=== PATIENT | female | born 1980 | race Caucasian/White ===

== ENCOUNTER 2025-08-13 08:12 | Outpatient (AMB) | payer BC, SELFPAY ==
--- NOTE | 2025-08-13 08:14 | A.OFFPC_ITS ---
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: No Accompanied by: Self / Same As Patient Allergies morphine Allergy (Intermediate, Verified 08/13/25 08:18) Vomiting Penicillins Allergy (Intermediate, Verified 08/13/25 08:18) Rash Sulfa (Sulfonamide Antibiotics) Allergy (Intermediate, Verified 08/13/25 08:18) Rash Medication List - Last Reconciled 08/13/25 by Munira Melendez MD fluoxetine 10 mg PO DAILY insulin aspart U-100 (Novolog U-100 Insulin aspart) units subcut DAILY magnesium glycinate 240 mg PO DAILY vitamin D3-vitamin K2 125 mcg (5,000 unit)-100 mcg caps PO DAILY Tobacco use date assessed: 08/13/25 Dental Screening Dental Screen Date: 08/13/25 Did you have a dental visit in the last 12 months?: Yes Did you have a dental problem in the last 6 months where you did not have access to dental care?: No Was dental information given to patient?: Patient has dentist HPI HPI Comments History of Present Illness Details The patient is a 45 year old female presenting for an annual physical and reestablish care. Type 1 Diabetes Mellitus: The patient has a history of type 1 diabetes mellitus and is managed by Dr. Houston, an dimensional integration engineer whom she saw in May. Her most recent hemoglobin A1c was 5.8. Perimenopausal Symptoms: The patient reports various perimenopausal symptoms, including intermittent hot flashes, brain fog, and a peculiar itching sensation that has persisted through the summer. The itching occurs at different locations, such as her scalp during the summer and now her palms, primarily when she is going to bed. She denies any rash, twitching, spasms, or cramps associated with the itching. There have been no recent changes in pets, travel, foods, or body products. She has been unable to secure an appointment with a bobbin cleaner for a year and is interested in trying low-dose estradiol and progesterone to manage her symptoms. Sleep Apnea: The patient has a history of sleep apnea, diagnosed a few years ago after she presented with headaches. She uses a nasal mask and is tolerating the treatment well. Overweight: The patient reports ongoing weight gain. An attempt to get Contrave was previously unsuccessful due to insurance issues. She walks two miles daily. Preventative Care: Her last Pap smear was almost two years ago. A colonoscopy was ordered over a year ago, and she has an appointment scheduled for November at [facility]. Up to date with COVID vaccination. [facility] Medical History (Updated 08/13/25 @ 17:00 by Munira Melendez MD) RAMANDEEP (obstructive sleep apnea) Routine medical exam Routine gynecological examination Hot flashes Diabetes mellitus type 1 Surgical History (Updated 08/13/25 @ 08:29 by Munira Melendez MD) History of ankle surgery Family History (Updated 08/13/25 @ 08:30 by Munira Melendez MD) Other Basal cell carcinoma Coronary artery disease Diabetes mellitus Primary hypertension Social History Housing: House Patient Tobacco Use Status: Never used Tobacco e-Cigarette/Vaping Use: Never Used service: No Current occupational status: employed 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 1. Little interest or pleasure in doing things: not at all 2. Feeling down, depressed, or hopeless: not at all 3. Trouble falling or staying asleep, or sleeping too much: not at all 4. Feeling tired or having little energy: not at all 5. Poor appetite or overeating: not at all 6. Feeling bad about yourself - or that you are a failure or have let yourself or your family down: not at all 7. Trouble concentrating on things, such as reading the newspaper or watching television: not at all 8. Moving or speaking so slowly that other people could have noticed. Or the opposite - being so fidgety or restless that you have been moving around a lot more than usual: not at all 9. Thoughts that you would be better off or of hurting yourself in some way: not at all Total score: 0 Depression Screening Interpretation: Negative Depression Screening Done: Yes 60126 - PHQ-9 Billing: Yes Source: Developed by Drs. Tony Wilson, Kosta Smith and colleagues, with an educational blake from [employer]. Thrive Questionnaire Date Thrive assessed: 08/13/25 I am a: Patient What is your living situation today?: I have a steady place to live Within the past 12 months, did the food you bought not last and you didn't have the money to get more?: Never true Within the past 12 months, did you worry whether your food would run out before you got money to buy more?: Never true Do you have trouble paying for medicines?: No Do you have trouble getting transportation to medical appointments?: No Do you have trouble paying your heating and electricity bill?: No Do you have trouble taking care of your child, family member or friend?: No Do you have trouble with day-to-day activities such as bathing, preparing meals, shopping, managing finances, etc.?: No Are you currently unemployed and looking for a job?: No Are you interested in more education?: No Please select the resources that you would like help with: None THRIVE Score: 0 AUDIT C Alcohol Use Questionnaire (AUDIT-C) 1. How often do you have a drink containing alcohol?: Monthly or less 2. How many drinks containing alcohol do you have on a typical day when you are drinking?: 1 or 2 3. How often do you have six or more drinks on one occasion?: Never Total Score: 1 RANDY-7 AMB Questionnaire RANDY-7 Date RANDY - 7 assessed: 08/13/25 Feeling nervous, anxious, or on edge: 0 = Not at all Not being able to stop or control worryin = Not at all Worrying too much about different things: 0 = Not at all Trouble relaxin = Not at all Being so restless that it is hard to sit still: 0 = Not at all Becoming easily annoyed or irritable: 0 = Not at all Feeling afraid as if something awful might happen: 0 = Not at all Total RANDY-7 score (0-4 normal; 5-9 mild; 10-14 moderate; 15-21 severe): 0 Source: Developed by Drs. Tony Wilson, Kosta Smith and colleagues, with an educational blake from [employer]. Review of Systems Narrative Review of Systems - Constitutional: Reports hot flashes, brain fog, and weight gain. Denies fever or chills. - Integumentary: Reports intermittent pruritus on scalp and palms, especially when going to bed. Denies rash. - Musculoskeletal: Denies twitching, spasms, or cramps. - Psychiatric: Denies symptoms of depression or anxiety. Physical exam (Primary Care) Vital Signs: Last Vital Signs Temp 97.1 F 08/13/25 08:17 Pulse 76 08/13/25 08:17 Resp 16 08/13/25 08:17 BP 124/82 08/13/25 08:17 Pulse Ox 97 08/13/25 08:17 Oxygen Delivery Method Room Air 08/13/25 08:17 BMI result Body Mass Index 29.5 Tobacco/Smoking Status: Tobacco use Status Tobacco use date assessed 08/13/25 08/13/25 08:17 Patient Tobacco Use Status Never used Tobacco 08/13/25 08:24 e-Cigarette/Vaping Use Never Used 08/13/25 08:24 PHQ-9: PHQ-9 Score PHQ-9: Total score 0 08/13/25 08:57 Depression Screening Interpretation: Negative Thrive Assessment: Date of Thrive Assessment Date Thrive assessed 08/13/25 08/13/25 08:30 Narrative Physical Exam - Constitutional: Well-appearing female in no acute distress. - Oropharynx: Mucous membranes are moist. Uvula is midline. - Neck: No lymphadenopathy in the neck or supraclavicular regions. - Cardiovascular: Regular rate and rhythm with normal S1/S2 sounds. - Lungs: Clear to auscultation bilaterally, no wheezing. - Abdomen: Soft, non-tender, with normal bowel sounds. - Lower Extremities: No edema noted bilaterally. Coding Level of Care Code Est Pt Prev Care 40-64y(77882) Add On Preventative Visit Only Diagnoses Type 1 diabetes mellitus without complications E10.9 Diabetes mellitus complication status: without complication RAMANDEEP (obstructive sleep apnea) G47.33 Routine medical exam Z00.00 Additional Codes PHQ-9 - 49423 - PHQ-9 Billing: Yes ([id number]) Assessment & Plan Assessment & Plan (1) Diabetes mellitus type 1: Code(s): E10.9 - Type 1 diabetes mellitus without complications Category: Medical Qualifiers: Diabetes mellitus complication status: without complication Qualified Code(s): E10.9 - Type 1 diabetes mellitus without complications (2) RAMANDEEP (obstructive sleep apnea): Code(s): G47.33 - Obstructive sleep apnea (adult) (pediatric) Category: Medical (3) Routine medical exam: Code(s): Z00.00 - Encounter for general adult medical examination without abnormal findings Category: Medical Plan Assessment and Plan 1. Annual Physical Exam - The patient presented for a routine physical examination. - Will order labs including an anemia panel and kidney function tests. 2. Perimenopausal Symptoms - The patient reports symptoms including pruritus, hot flashes, and brain fog, and is interested in hormone therapy. 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 3. Type 1 Diabetes Mellitus - The patient is well-managed with a last A1c of 5.8. - Will request a copy of recent labs from her dimensional integration engineer, Dr. Berger. 4. Overweight - The patient reports continued weight gain despite daily exercise. - Will re-submit a prescription for Contrave and provide a letter for prior authorization, explaining that GLP-1 agonists are contraindicated since patient is a type 1 diabetic. 5. Health Maintenance - A previously ordered colonoscopy is now scheduled for November; the patient will notify the office once completed. - Will send a refill for her fluoxetine. - The patient will contact her employee health department to obtain her vaccination records to confirm her tetanus status and get a booster if it has been more than 10 years. 6. Sleep Apnea - Patient reports using a nasal mask for sleep apnea, which has resolved her headaches. - Continue current management. Plan - Will order labs today, including an anemia panel, kidney function tests, and vitamin D level - Placing a referral to gynecology for management of perimenopausal symptoms and consideration of hormone replacement therapy. - Sent a prescription for Contrave for weight management - The patient has a colonoscopy scheduled for November and will inform the office of the results. Discussion Notes Patient Instructions - Please get your blood work done today - We have sent a referral to gynecology - Please contact Dr. Houston's office and ask them to send a copy of your recent lab results to our office. - Proceed with your colonoscopy scheduled for November. Please send us a message through the portal once it is complete so we can get the results. Orders: Orders Magnesium Today E10.9 - Type 1 diabetes mellitus without complications, Z00.00 - Encounter for general adult medical examination without abnormal findings Complete Blood Count Auto Diff Today E10.9 - Type 1 diabetes mellitus without complications, Z00.00 - Encounter for general adult medical examination without abnormal findings Comprehensive Met. Panel Today E10.9 - Type 1 diabetes mellitus without complications, Z00.00 - Encounter for general adult medical examination without abnormal findings TSH reflex Free T4 Today E10.9 - Type 1 diabetes mellitus without complications, Z00.00 - Encounter for general adult medical examination without abnormal findings Vitamin B12 Today L29.9 - Pruritus, unspecified, R23.2 - [place] Vitamin D 25-OH Total Today E55.9 - Vitamin D deficiency, unspecified, R23.2 - [place] Referrals [facility] Referral R23.2 - [place], Z01.419 - Encounter for gynecological examination (general) (routine) without abnormal findings Medications: New naltrexone-bupropion 8-90 mg (Contrave) One tablet (naltrexone 8 mg/bupropion 90 mg) once daily in the morning for 1 week; increase as tolerated in weekly intervals: 1 tablet twice daily for 1 week; then 2 tablets in the morning and 1 tablet in the evening for 1 week; and then 2 tablets twice daily (maximum dose: 4 tablets/day [naltrexone 32 mg/bupropion 360 mg per day] 120 tabs 3RF fluoxetine 10 mg PO DAILY 90 caps 3RF
[2025-08-13 08:17] VITALS: BP 124/82; PULSE 76; RESP 16; TEMP 36.2; O2SAT 97; BMI 29.5
== END 2025-08-13 09:07 | disposition home or self-care (01) ==
LOC: HO.HMCHD 08:12
PROVIDERS: PCP Internal Medicine; Visit Provider Internal Medicine
DX: Z00.00 Encounter for general adult medical examination without abnormal findings (principal); E10.9 Type 1 diabetes mellitus without complications; G47.33 Obstructive sleep apnea (adult) (pediatric)

== ENCOUNTER → 2025-08-13 08:12 | Outpatient (BNVA) | payer BC, SELFPAY | PROVIDERS: PCP Internal Medicine; Visit Provider Internal Medicine | DX: Z00.00 Encounter for general adult medical examination without abnormal findings (principal); E10.9 Type 1 diabetes mellitus without complications; G47.33 Obstructive sleep apnea (adult) (pediatric); E66.3 Overweight; Z68.29 Body mass index [BMI] 29.0-29.9, adult; Z13.31 Encounter for screening for depression; Z13.39 Encounter for screening examination for other mental health and behavioral disorders | CPT/HCPCS: 96127 ==

== ENCOUNTER 2025-08-13 09:12 | Outpatient (REF) | payer BC, SELFPAY ==
[2025-08-13 10:44] LABS: MANUAL DIFF FLAG NO
[2025-08-13 10:45] LABS: Hematocrit 39.3 % (37.0-47.0); Hemoglobin 13.3 g/dl (12.0-16.0); Imm Gran Abs Auto 0.01 X10*3/uL (0.00-0.03); Imm Gran Pct Auto 0.2 % (0.0-0.4); Lymphocytes Absolute Auto 1.5 X10*3/uL (1.2-4.9); Mean Corpuscular HGB Conc 33.8 g/dl (31.0-35.0); Mean Corpuscular Hemoglobin 32.1 pg (27.0-33.0); Mean Corpuscular Volume 94.9 fL (80.0-98.0); NRBC Abs Auto 0.000 X10*3/uL (0.0-0.012); NRBC Pct Auto 0.0 /100WBC (0.0-0.2); Platelet Count 220 X10*3/uL (160-400); Red Blood Count 4.14 X10*6/uL (4.20-5.50); White Blood Count 6.6 X10*3/uL (4.8-10.8)
[2025-08-13 11:16] LABS: Alanine Aminotransferase 20 U/L (0-31); Albumin Level 4.1 g/dL (3.5-5.0); Alkaline Phosphatase 63 U/L (39-117); Anion Gap 6 (12-20); Aspartate Amino Transferase 21 U/L (5-31); Blood Urea Nitrogen 21 mg/dL (9-16); Calcium 9.0 mg/dL (8.4-10.2); Carbon Dioxide 30 mmol/L (22-29); Chloride 104 mmol/L (96-108); Estimated Glomerular Filt Rate 57; Magnesium 1.9 mg/dL (1.6-2.6); Potassium 4.3 mmol/L (3.3-5.1); Sodium 136 mmol/L (135-145); Total Protein 6.6 g/dL (6.5-8.0)
[2025-08-13 11:25] LABS: Vitamin B12 503 pg/mL (200-900)
== END 2025-08-13 09:13 | disposition home or self-care (01) ==
LOC: HO.10HDL 09:12
PROVIDERS: Visit Provider Internal Medicine
DX: Z00.00 Encounter for general adult medical examination without abnormal findings (principal); E10.9 Type 1 diabetes mellitus without complications; R23.2 Flushing; L29.9 Pruritus, unspecified; E55.9 Vitamin D deficiency, unspecified
CPT/HCPCS: 36415; 80053; 82306; 82607; 83735; 84443; 85025